=== PATIENT | female | born 1995 | race Caucasian/White ===

== ENCOUNTER → 2019-09-29 | Outpatient (CLI) | payer OTHER ==
--- NOTE | 2019-09-29 13:05 | REP ---
OBSTETRIC SONOGRAPHY: HISTORY: Supervision of for anatomy. FINDINGS: Scanning through the gravid uterus demonstrates a viable single intrauterine gestation in a breech lie. motion is observed and heart rate is recorded at 143 beats per minute. A posterior grade 1 placenta is seen without evidence of previa or abruption. Amniotic fluid is subjectively normal. Closed cervical length is 3.6 cm viewed transabdominally. No extrauterine abnormalities observed. The umbilical cord is seen draping across the shoulders. No anomaly is seen. The following anatomic structures are identified and felt to be sonographically unremarkable: cranium, choroid plexus, cavum, cerebellum and posterior fossa, face and profile, lungs, four-chamber heart with left and right ventricular outflow tract views, diaphragm, left-sided stomach, abdominal wall cord insertion, three-vessel cord, kidneys and bladder, spine, upper and lower extremities. BIOMETRY CHART: BPD 4.9 cm = 20 weeks 6 days Head circumference 18.8 cm = 21 weeks 1 day Abdominal circumference 15.5 cm = 20 weeks 5 days Femur length 3.1 cm = 19 weeks 5 days Humeral length 3.0 cm = 20 weeks 0 days HC/AC ratio normal 1.22 . Cephalic index normal 0.72. Estimated weight 347 grams, 0 pounds 12 ounces, 34th percentile for 20 weeks 5 days. IMPRESSION: Viable single intrauterine gestation at 20 weeks 3 days by today's composite sonographic criteria. MARGARET by today's sonography February 13, 2020. No abnormality noted. Electronically Signed by Imer Jones MD 09/29/2019 01:44 P
== END ==
LOC: M RAD 11:36
PROVIDERS: ATTEND Obstetrics & Gynecology
DX: Z34.02 Encounter for supervision of normal first pregnancy, second trimester (principal); Z3A.20 20 weeks gestation of pregnancy

== ENCOUNTER 2019-10-19 17:13 | Emergency (ER) | payer OTHER ==
[~2019-10-19] VITALS: Ht 154.9 cm; Wt 63.6 kg
[2019-10-19 17:14] VITALS: BP 124/76
[2019-10-19] MEDS ORDERED: [UNRECOGNIZED DRUG - OTHER] (17:23)
[2019-10-19] MEDS ORDERED: FAMO1TAB11 (17:23)
[2019-10-19] MEDS ORDERED: LEVO50TA5 (17:23)
[2019-10-19] MEDS ORDERED: ANUSOL HC CREAM 30GM TOP STA (17:38)
[2019-10-19] MEDS ORDERED: PROC1AER16 PR (17:49)
[2019-10-19] MEDS ORDERED: HYDR-3713 PO (17:49)
[2019-10-19] MEDS ORDERED: ANUS25SU PR (17:49)
[2019-10-19] MEDS ORDERED: MIRA3350 PO (18:27)
== END 2019-10-19 18:12 | disposition home or self-care (01) ==
LOC: M ED 17:13
DX: O22.42 Hemorrhoids in pregnancy, second trimester (principal); O99.282 Endocrine, nutritional and metabolic diseases complicating pregnancy, second trimester; E03.9 Hypothyroidism, unspecified; Z88.0 Allergy status to penicillin; Z3A.23 23 weeks gestation of pregnancy; Z79.899 Other long term (current) drug therapy

== ENCOUNTER 2019-12-28 22:59 | Outpatient (CLI) | payer OTHER ==
[~2019-12-28] VITALS: Ht 157.5 cm; Wt 75.7 kg
[~2019-12-28 22:59] MED LIST: ANUS25SU PR; FAMO1TAB11; HYDR-3713 PO; LEVO50TA5; MIRA3350 PO; PROC1AER16 PR; [UNRECOGNIZED DRUG - OTHER]
[2019-12-28 23:18] VITALS: BP 126/63
[2019-12-28] MEDS ORDERED: MAPA500T2 PO (23:35)
[2019-12-28] MEDS ORDERED: FAMO1TAB25 PO (23:35)
[2019-12-28] MEDS ORDERED: FISH306C PO (23:35)
[2019-12-28] MEDS ORDERED: CALC500C16 PO (23:35)
[2019-12-28] MEDS ORDERED: SM I160T PO (23:35)
[2019-12-28] MEDS ORDERED: TUMS500C PO (23:35)
[2019-12-29] VITALS (8 sets, daily range): BP systolic 103–133; BP diastolic 51–74
[2019-12-29 00:15] LABS: APPEARANCE, URINE CLEAR (CLEAR); BACTERIA, URINE AUTO NEGATIVE (NEGATIVE); BILIRUBIN, URINE AUTO NEGATIVE (NEGATIVE); BLOOD, URINE BLOOD NEGATIVE (NEGATIVE); COLOR, URINE STRAW (YELLOW); GLUCOSE, URINE (UA) AUTO NEGATIVE (NEGATIVE); KETONE, URINE AUTO NEGATIVE (NEGATIVE); LEUKOCYTE ESTERASE, URINE AUTO NEGATIVE (NEGATIVE); NITRITE, URINE AUTO NEGATIVE (NEGATIVE); PROTEIN, URINE AUTO NEGATIVE (NEGATIVE); RBC, URINE AUTO 0 /HPF (0-3); SPECIFIC GRAVITY URINE AUTO 1.005 (1.002-1.035); SQUAMOUS EPITHELIAL CELL UR AU 0 /HPF (0-6); UROBILINOGEN, URINE AUTO 0.2 mg/dL (0.0-2.0); WBC, URINE AUTO 1 /HPF (0-3)
[2019-12-29] MEDS ORDERED: MORPHINE 10 MG/ML 1ML VIAL (J2270) SC ONE (01:30)
[2019-12-29] MEDS ORDERED: LR 1,000 ML IV SCH (02:15)
[2019-12-29] MEDS ORDERED: LR 1,000 ML IV ONE (02:15)
[2019-12-29] MEDS ORDERED: BETAMETHASONE SOLUSPAN 6MG/ML 5ML VIAL (J0702 PER 3MG) IM SCH (02:15)
[2019-12-29] MEDS ORDERED: BETAMETHASONE SOLUSPAN 6MG/ML 5ML VIAL (J0702 PER 3MG) As Ordered ONE (02:20)
--- NOTE | 2019-12-29 07:40 | IPNPDOC ---
Obstetrical Progress Note Date of Service Dec 29, 2019 Subjective 24-year-old 1 presents at 33 weeks 4 days estimated gestational age with complaints of contraction lower back pain. She reports 3-4 days of increasing back pain, pelvic discomfort. She denies any vaginal bleeding, leakage fluid, tissue area, recent intercourse, fever or chills. Her course has been unremarkable. Sterile speculum exam with fibronectin was obtained which returned as positive. Cervical exam cervix is long and closed. She was reexamined 5 hours later and her cervix was unchanged. Objective Vital Signs Date Time Temp Pulse Resp B/P (MAP) Pulse Ox O2 Delivery O2 Flow Rate FiO2 12/29/19 06:30 97.8 75 18 109/57 (74) 12/29/19 02:05 Room Air Assessment Variability: Moderate Accelerations: Positive Heart Rate Tracing: Category I Tocometer Contractions: Yes Sterile Vaginal Examination Dilation: None Station: -3 Cervical Consistency: Medium Cervical Position: Middle Assessment and Plan Age: 24 : 1 Status: Reassuring Additional Comments 24-year-old 1 at 33 weeks 4 days estimated gestational age with contractions, not in active labor. Patient has been provided with betamethasone for lung maturity. She was observed overnight and her cervix remained unchanged. She was given IV fluids and 5 mg of morphine subcutaneous for her lower back pain with improvement of her symptoms. She will return in 24 hours for her second dose. She has been provided with labor precautions and kick count instructions. NHAN ORTEGA MD. Dec 29, 2019 07:40
== END 2019-12-29 08:50 | disposition home or self-care (01) ==
LOC: M LDO 22:59
PROVIDERS: ATTEND Obstetrics & Gynecology
DX: O60.03 Preterm labor without delivery, third trimester (principal); Z3A.33 33 weeks gestation of pregnancy
CPT/HCPCS: 59025; 81001; 82731; 87086; 96360; 96372; G0378; G0463; J0702; J2270

== ENCOUNTER 2019-12-30 07:29 | Outpatient (CLI) | payer OTHER ==
[~2019-12-30] VITALS: Ht 157.5 cm; Wt 75.3 kg
[~2019-12-30 07:29] MED LIST changes: +CALC500C16 PO; +FAMO1TAB25 PO; +FISH306C PO; +MAPA500T2 PO; +SM I160T PO; +TUMS500C PO
[2019-12-30] MEDS ORDERED: BETAMETHASONE SOLUSPAN 6MG/ML 5ML VIAL (J0702 PER 3MG) IM ONE (08:00)
[2019-12-30 08:02] VITALS: BP 134/60
--- NOTE | 2019-12-30 16:25 | IPNPDOC ---
Text Note Date of Service The patient was seen on 12/30/19. NOTE LND Triage Note S: Estefany is a 24yo at 33+5wks who presents to LND triage for 2nd dose of betamethasone. She reports that she had some contractions yesterday that stopped spontaneously, but has had a few since she woke up today. She reports +FM, denies LOF/VB. She has no other concerns at this time. O: VSS, afebrile, normotensive FHR 130s, moderate variability, + accels, no decels noted CTX: few during NST VE: 1/L/H (unchanged from exam at discharge yesterday) A: 24yo at 33+5wks, reassuring status, Category I FHT/Reactive. Not in labor. 2nd dose of betamethasone administered. P: Discharged home with strict PTL precautions. f/u PRN here in LND or for clinic appointment Can call customer consulting manager or OB emergency pager with questions/concerns VS,Rm, I+O VS, Rm, I+O Vital Signs Date Time Temp Pulse Resp B/P (MAP) Pulse Ox O2 Delivery O2 Flow Rate FiO2 12/30/19 08:02 99.2 89 18 134/60 (84) HODAN VILLALBA CNM Dec 30, 2019 16:25
== END 2019-12-30 09:15 | disposition home or self-care (01) ==
LOC: M LDO 07:29
PROVIDERS: ATTEND Registered Nurse Maternal Newborn
DX: O26.893 Other specified pregnancy related conditions, third trimester (principal); Z3A.33 33 weeks gestation of pregnancy

== ENCOUNTER 2019-12-30 18:33 | Inpatient (IN) | payer OTHER ==
[~2019-12-30] VITALS: Ht 157.5 cm; Wt 75.0 kg
[2019-12-30 18:53] VITALS: BP 122/56
[2019-12-30 19:28] VITALS: BP 116/55
[2019-12-30] MEDS ORDERED: NIFEdipine 10 MG CAP PO ONE ×2 (19:30→22:00)
--- NOTE | 2019-12-30 19:35 | IPNPDOC ---
Text Note Date of Service The patient was seen on 12/30/19. NOTE pateint is a 24yo at 33+5wks who presents to LND triage for having regular painful contractions x 2 hrs. she was seen yesterday for contractions, serial cervical checks unchanged. positive FFN. she received her second dose of betamethasone this AM. Was also checked to be unchanged. She denies LOF/VB. +FM O: VSS, afebrile, normotensive FHR 130s, moderate variability, + accels, no decels noted TOCO: ctx q 3-4mins CE: closed/l/high, soft, mid a/p patient 24 you @ 33+5wks with contractions. unchanged serial cervical exams. discussed with patient trial of procardia for contractions. start with procardia 20 mg po. oral hydration. DO Marlee VS,Fishbone, I+O VS, Fishbone, I+O Vital Signs Date Time Temp Pulse Resp B/P (MAP) Pulse Ox O2 Delivery O2 Flow Rate FiO2 12/30/19 18:53 97.8 73 18 122/56 (78) TAMMIE GOMEZ DO Dec 30, 2019 19:35
[2019-12-30 20:57] VITALS: BP 115/56
[2019-12-30 21:48] VITALS: BP 118/61
--- NOTE | 2019-12-30 21:59 | IPNPDOC ---
Text Note Date of Service The patient was seen on 12/30/19. NOTE patient received procardia po 20mg. reports feeling decreased intensity. still regular ctx. vitals: normal NAD taus: breech fht: 135/mod geetha/pos accel/no decel toco: ctx q 3mins ce: 07/17/-3 a/p patient with cervical change. breech presentation. Will continue monitoring. redose nifedipine 20mg x 1. start IV, standard labs. reassess 2 hrs after nefidpine dosing. Discuss with patient if her cervix continues to make significant change, then I will recommend a primary delivery due to breech presentation. DO Marlee VS,Rm, I+O VS, Fishbone, I+O Vital Signs Date Time Temp Pulse Resp B/P (MAP) Pulse Ox O2 Delivery O2 Flow Rate FiO2 12/30/19 19:37 116/55 12/30/19 18:53 97.8 73 18 TAMMEI GOMEZ DO Dec 30, 2019 21:59
[2019-12-30 22:06] VITALS: BP 108/54
[2019-12-30] MEDS: LR 1,000 ML IV SCH (22:06)
[2019-12-30 22:44] LABS: HEMATOCRIT 38.5 % (36.0-47.0); HEMOGLOBIN 12.9 g/dl (12.0-15.5); MEAN CORPUSCULAR HEMOGLOBIN 32.7 pg (27.0-33.0); MEAN CORPUSCULAR HGB CONC 33.5 g/dl (32.0-36.5); MEAN CORPUSCULAR VOLUME 97.5 fl (80.0-96.0); PLATELET COUNT, AUTOMATED 159 10^3/uL (150-450); RED BLOOD COUNT 3.95 10^6/uL (4.00-5.40); WHITE BLOOD COUNT 11.8 10^3/uL (4.0-10.0)
--- NOTE | 2019-12-30 23:16 | HPEPDOC ---
Obstetrical History & Physical General Date of Admission Dec 30, 2019 at 22:56 History of Present Illness patient is a 24 yo G1 @ 33+5wks with contraction, made cervical change from closed to 1cm after 2hrs observation. procardia 20mg po decreased intensity of contractions. she had second dose of steroid around 0830 this AM. Chief Complaint: Contractions, pre-term Information Provided By: Patient Age: 24 : 1 Term: 0 Pre-term: 0 Abortions: 0 Livin Care Care: Good Care Dating Final EDC: Feb 12, 2020 Final EDC for Daily Update: Feb 12, 2020 Final EDC by: LMP, 1st trimester (US) Past Medical History Past Obstetrical History : Past Obstetrical History: Primgravida Past Medical History Medical History hypothyroidism, scoliosis Surgical History: Denies/None Family History Significant Family History: No pertinent family hx Social History Marital Status: Family situation: Spouse/partner home * Smoker: non-smoker Alcohol: Denies Drugs: denies Imunizations Tdap status: current Influenza Status: current Allergies Coded Allergies: amoxicillin (Verified Allergy, Intermediate, hives, 12/30/19) Medications Scheduled Calcium Carbonate (Calcium) 500 Mg Tab.chew, 1 TAB PO BID [place]cher-3/Dha/Epa/Fish Oil (Fish Oil 500 mg Softgel) 1 Each Capsule, 1 CAP PO DAILY Miscellaneous Medications Acetaminophen (Mapap) 500 Mg Tablet, 1,000 MG PO Famotidine (Famotidine) 20 Mg Tablet Ferrous Sulfate, Dried (Iron) 160 Mg Tablet.er, 160 MG PO Levothyroxine Sodium (Levothyroxine Sodium) 50 Mcg Tablet [prentatl vit] Physical Examination Physical Examination GENERAL: Alert and oriented times three. ABDOMEN: Gravid and non-tender to touch. FETUS: breech, by TAUS HEART RATE: Regular rate and rhythm. LUNGS: Clear to auscultation (CTA). EXTREMITIES: No edema. No clonus. Deep tendon reflexes (DTRs) + . EFW: 2100gm Vital Signs/I&O Vital Signs Date Time Temp Pulse Resp B/P (MAP) Pulse Ox O2 Delivery O2 Flow Rate FiO2 12/30/19 22:06 108/54 12/30/19 18:53 97.8 73 18 Laboratory Data 24H LABS Laboratory Tests 2 12/30/19 21:35: Urine Color STRAW, Urine Appearance CLEAR, Urine pH 7.0, Urine Specific [place] 1.003, Urine Protein NEGATIVE, Urine Glucose (UA) NEGATIVE, Urine Ketones 2+H, Urine Blood NEGATIVE, Urine Nitrite NEGATIVE, Urine Bilirubin NEGATIVE, Urine Urobilinogen 0.2, Urine Leukocyte Esterase NEGATIVE, Urine WBC (Auto) 0, Urine RBC (Auto) 0, Urine Hyaline Casts (Auto) 0, Urine Bacteria (Auto) NEGATIVE, U rine Squamous Epithelial Cells 0, Urine Sperm (Auto) 12/30/19 22:26: Nucleated Red Blood Cells % (auto) 0.3H CBC/BMP Laboratory Tests 12/30/19 22:26 Microbiology Microbiology 12/30/19 Group B Streptococcus Screen (JUAN MANUEL), Received Pending Pertinent Laboratoy Data Blood Type: A+ RBC Antibody Screen: Negative HIV: Negative Hepatitis B: Negative Rapid Plasma Reagin: Nonreactive Rubella: Immune Varicella: Immune Chlamydia/Gonorrhea: Negative Group B Streptococcus: Unknown Glucose Tolerance Test: 122 Anatomy Ultrasound Placenta Location: Posterior Normal Anatomy: Yes Placenta Previa: No Vaginal Examination Dilation: 1cm Effacement: 30% Station: -3 Cervical Consistency: Medium Cervical Position: Middle Presentation: Breech presentation Assessment Heart Rate (FHR): 130 Variability: Moderate Accelerations: Positive Decelerations: None Tocometer Contractions: Yes Frequency: regular, every 1-3 min. Assessment/Plan Assessment patient is a 24 yo G1 @ 33+5wks with concern for labor in setting of breech presentation. She will be steroid complete tomorrow at 0830. Admit for monitoring and tocolysis. Discussed with patient if she continues to make cervical changes, then delivery mode will be primary section to avoid breech delivery and associated complications. Discussed risks of section to include infection, bleeding requiring blood transfusion, injuring to surrounding organs, hysterectomy, as well as post op pain. Plan Admit and orient. Rn Telemetry and consent. Diet: NPO Group B Streptococcus (GBS) unknown Labs and intravenous (IV) per unit protocol. consent for section and blood transfusion. continue with nifedipine for tocolysis attempt, may consider terb pcn allergic. TAMMIE GOMEZ DO Dec 30, 2019 23:16
[2019-12-31] VITALS (7 sets, daily range): BP systolic 104–119; BP diastolic 51–59
[2019-12-31] MEDS: LR 1,000 ML IV SCH ×3 (00:10→13:43)
[2019-12-31] MEDS ORDERED: TERBUTALINE SULFATE 1 MG/ML VIAL (J3105) SC ONE ×2 (00:15→03:30)
[2019-12-31] MEDS ORDERED: LEVOTHYROXINE 50MCG TABLET (0.05MG) PO SCH (06:00)
--- NOTE | 2019-12-31 07:14 | IPNPDOC ---
Text Note Date of Service The patient was seen on 12/31/19. NOTE patient received terb 0.25mg x 2 after procardia 20mg x 2. Currently reports rare contractions. she is without concerns. steroid complete at 0830 today. vitals: normal NAD fht: 145/mod geetha/pos accel/no decel toco: uterine irritability with occasional contractions. ce: 07/17/-3 a/p patient in labor, contractions stopped with terb. patient is steroid complete this AM. Discussed with patient since she is steroid complete, will not continue to attempt to stop her labor if her contractions cook pickled meat again due to risks of terbutaline. Discussed with patient option of going home vs. remaining in house for observation at least for the day. patient desires to s mercedes in house since this is her third visit. patient is consented for section if she continues to make cervical changes. Will transfer to ante . BID NST. assess for discharge tomorrow. DO Marlee VS,Rm, I+O VS, Patricee, I+O Laboratory Tests 12/30/19 22:26 Vital Signs Date Time Temp Pulse Resp B/P (MAP) Pulse Ox O2 Delivery O2 Flow Rate FiO2 12/31/19 03:53 98.6 74 18 104/54 (71) TAMMIE GOMEZ DO Dec 31, 2019 07:14
[2019-12-31] MEDS: PRENATAL VITAMINS CHEWABLE TABLET PO SCH (08:10)
[2019-12-31] MEDS: LEVOTHYROXINE 50MCG TABLET (0.05MG) PO SCH (08:10)
--- NOTE | 2019-12-31 14:24 | IPNPDOC ---
Text Note Date of Service The patient was seen on 12/31/19. NOTE S: Feeling "tightening" 8/hr. Began IVF bolus. O: VS WNL ABD Gravid, NT SVE: 07/17/3 (unchanged) FHT: Category 1, 130s, reactive, no decels, 1 ctx A/P: Fetus reassuring. Will go on patient symptoms. Pt to inform if she has similar (to prior) or painful ctx. If remains stable then regular diet at dinner. VS,Fishbone, I+O VS, Fishbone, I+O Laboratory Tests 12/30/19 22:26 Vital Signs Date Time Temp Pulse Resp B/P (MAP) Pulse Ox O2 Delivery O2 Flow Rate FiO2 12/31/19 10:10 98.7 96 16 119/59 (79) 98 Room Air Rizwana Mckeon MD Dec 31, 2019 14:24
[2020-01-01] MEDS: LR 1,000 ML IV SCH ×2 (05:45→12:06)
[2020-01-01] MEDS: LEVOTHYROXINE 50MCG TABLET (0.05MG) PO SCH (05:45)
[2020-01-01 06:00] VITALS: BP 114/65
--- NOTE | 2020-01-01 08:30 | IPNPDOC ---
Text Note Date of Service The patient was seen on 01/01/20. NOTE S: No LOF. No VB. +FM. No contractions but had "tightening" (BH) int ermittently yesterday. O: AF, VS WNL ABD gravid, NT SVE Deferred (12/31/201907/17/-3) LE NT, SCDS in place FHT: Category 1, 130s, reactive, no decels, no ctx A/P: 24yo at wks HD 3 . She is s/p Dexa x 2, US 01/01/2020 breech, normal FLORIAN , EFW consistent. S/p nifedipine and terb. US if PTL/contractions increase. Continue to observe for PTL. VS,Patricee, I+O VS, Rm, I+O Laboratory Tests 12/30/19 22:26 Vital Signs Date Time Temp Pulse Resp B/P (MAP) Pulse Ox O2 Delivery O2 Flow Rate FiO2 12/31/19 14:49 98.2 85 20 118/56 (76) 97 Room Air Rizwana Mckeon MD Dec 31, 2019 15:41
[2020-01-01] MEDS: PRENATAL VITAMINS CHEWABLE TABLET PO SCH (09:07)
[2020-01-01] MEDS ORDERED: ACETAMINOPHEN 500 MG TAB PO ONE (17:00)
--- NOTE | 2020-01-02 08:34 | IPN ---
DATE: 01/01/2020 This lady is a 24-year-old, 1, para 0, who was seen because of contractions. She was admitted and given the first dose of steroids. Sent home. Came back for a second dose of steroids. Had intermittent contractions and however, apparently she made some cervical change to 1 cm and it was elected to keep her and attempt to stop her contractions until she was steroid complete. She was given terbutaline and she was given nifedipine. She was down on the rooney and had some contractions, which apparently start at the top of her abdomen and went around side and down her legs. She has no discharge, no vaginal bleeding, and good movement. She did have a category 1 strip and we could see the occasional contraction on the monitor. She is presently now steroid complete. We are pending group B streptococcus (GBS) cultures. She is being monitored, hydrated and the plan of care was if she is still maintained as a breech and was in active labor that she will have a primary section. At the present time, she is not in active labor. We are going to reassess for amniotic fluid, weight, position, and cervical length. At the present time, her blood pressure is 114/65, respirations are 18, pulse 83, temperature is 98.2. Our plan of management is to do an ultrasound for evaluation, monitor for contractions and if she truly gets into active labor will have a primary section for breech presentation of labor. The patient and expressed understanding of the plan. She will have prophylactic antibiotics because GBS status unknown. It should be out in less than 24 hours. Will reevaluate her in several hours' time.
--- NOTE | 2020-01-02 10:44 | REP ---
FOLLOWUP OB ULTRASOUND: 01/01/2020. CLINICAL HISTORY: Supervision of , evaluate position, weight, FLORIAN, and cervical length. COMPARISON STUDY: 09/29/2019 FINDINGS: Based on her initial ultrasound and LMP, she has an EDC of 02/11/2020, 34 weeks 1 day. There is a single intrauterine gestation in breech position. Cervix is 3.7 cm long. Amniotic fluid volume is subjectively upper normal at 22.9 with a normal range 8.1-24.8. The largest fluid pocket is 8.7 cm. There is a posterior fundal grade 1 placenta without previa or abruption. BIOMETRY:BPD 8.5 cm = 34 weeks 2 daysHC 31.4 cm = 35 weeks 2 daysAC 32.1 cm = 36 weeksFL 6.7 cm = 34 weeks 4 daysHL 5.8 cm = 33 weeks 6 days This gives average ultrasound age 34 weeks 4 days with EDC 02/08/2020. Estimated weight 2663 grams or 5 pounds 13 ounces is 71st percentile for dating based on initial ultrasound. heart rate 139 and regular. Mid cord umbilical artery Doppler has an S/D ratio of 2.97, upper range of normal is 3.0. Resistive index of 0.66 and normal forward diastolic flow. IMPRESSION: 1. Single intrauterine gestation in breech position with closed 3.7 cm long cervix, posterior fundal grade 1 placenta without previa or abruption, and subjectively upper normal range amniotic fluid. FLORIAN 22.9, normal range 8.1-24.8. 2. Mid cord umbilical artery Doppler 2.97 with normal forward diastolic flow. 3. Average ultrasound age by today's exam 34 weeks 4 days, by initial exam 34 weeks 1 day with EDC 02/11/2020. 4. Estimated weight 2663 grams or 5 pounds 13 ounces at 71st percentile. 5. heart rate 139. Electronically Signed by Chepe Pacheco MD 01/02/2020 06:37 P
== END 2020-01-01 18:58 | disposition home or self-care (01) | DRG 998 ==
LOC: M LDO 18:33 → M LDI 22:56 → M OBS 12-31 10:09 → M LDI 01-01 13:30
PROVIDERS: ADMIT Obstetrics & Gynecology; ATTEND Obstetrics & Gynecology
DX: O60.14X0 Preterm labor third trimester with preterm delivery third trimester, not applicable or unspecified (principal); Z3A.33 33 weeks gestation of pregnancy; Z79.899 Other long term (current) drug therapy; O32.1XX0 Maternal care for breech presentation, not applicable or unspecified

== ENCOUNTER 2020-02-02 12:42 | Inpatient (IN) | payer OTHER ==
[2020-02-02] MEDS ORDERED: BICITRA 30ML SOLN UDC ONE (14:34)
[2020-02-02] MEDS ORDERED: dexameTHASONE 4 MG/ML 1ML VIAL (J1100 PER 1MG) As Ordered ONE (14:43)
[2020-02-02] MEDS ORDERED: ONDANSETRON 4MG/2ML VIAL As Ordered ONE (14:43)
[2020-02-02] MEDS ORDERED: OXYTOCIN 30 UNITS IN 0.9% NaCl 500ML IV BAG (J2590) As Ordered ONE (14:43)
[2020-02-02] MEDS ORDERED: MORPHINE PRES-FREE INJ 10 MG/10 ML VIAL (J2274) As Ordered ONE (14:43)
[2020-02-02] MEDS ORDERED: KETOROLAC 60MG 2ML VIAL As Ordered ONE (14:43)
[2020-02-02] MEDS ORDERED: OXYTOCIN INJ 10 UNITS/ML VIAL (J2590) As Ordered ONE (14:44)
[2020-02-02] MEDS ORDERED: ePHEDrine SULFATE 25 MG/5 ML(5MG/ML) SYRINGE As Ordered ONE (14:44)
[2020-02-02] MEDS ORDERED: PHENYLephrine HCL 500 MCG/5 ML (100MCG/ML) SYRINGE (J2370) As Ordered ONE (14:44)
[2020-02-02] MEDS ORDERED: CLINDAMYCIN 900 MG/50 ML PREMIX BAG ONE (15:37)
[2020-02-02] MEDS ORDERED: MIDAZOLAM INJ 2MG/2ML VIAL (J2250 PER 1MG) As Ordered ONE (15:45)
[2020-02-02] MEDS ORDERED: propofoL 200 MG/20 ML VIAL As Ordered ONE (15:52)
[2020-02-02] MEDS ORDERED: fentaNYL 100 MCG/2 ML INJECTION (J3010) As Ordered ONE (15:53)
[2020-02-02] MEDS ORDERED: OXYTOCIN 30 UNITS IN 0.9% NaCl 500ML IV BAG (J2590) ONE (17:13)
[2020-02-02] MEDS ORDERED: PERCOCET 5MG/325MG TAB ONE (19:46)
[2020-02-02] MEDS ORDERED: KETOROLAC 30 MG/ML 1ML VIAL ONE (23:39)
[2020-02-03] MEDS ORDERED: KETOROLAC 30 MG/ML 1ML VIAL ONE ×2 (03:23→11:04)
[2020-02-03] MEDS ORDERED: PERCOCET 5MG/325MG TAB ONE ×5 (03:26→22:03)
[2020-02-03] MEDS ORDERED: PERCOCET 5MG/325MG TAB As Ordered ONE ×4 (08:00→22:03)
[2020-02-03] MEDS ORDERED: DOCUSATE SODIUM 100 MG CAP As Ordered ONE ×2 (08:00→19:34)
[2020-02-03] MEDS ORDERED: DOCUSATE SODIUM 100 MG CAP ONE ×2 (08:00→19:34)
[2020-02-03] MEDS ORDERED: KETOROLAC 30 MG/ML 1ML VIAL As Ordered ONE (11:04)
[2020-02-03] MEDS ORDERED: IBUPROFEN 800 MG TAB ONE (18:07)
[2020-02-03] MEDS ORDERED: IBUPROFEN 800 MG TAB As Ordered ONE (18:08)
[2020-02-04] MEDS ORDERED: IBUPROFEN 800 MG TAB As Ordered ONE ×3 (02:08→20:15)
[2020-02-04] MEDS ORDERED: IBUPROFEN 800 MG TAB ONE ×3 (02:08→20:15)
[2020-02-04] MEDS ORDERED: PERCOCET 5MG/325MG TAB ONE ×6 (02:08→23:16)
[2020-02-04] MEDS ORDERED: PERCOCET 5MG/325MG TAB As Ordered ONE ×6 (02:10→23:16)
[2020-02-04] MEDS ORDERED: SIMETHICONE 80 MG CHEW TAB ONE ×2 (04:07→20:15)
[2020-02-04] MEDS ORDERED: SIMETHICONE 80 MG CHEW TAB As Ordered ONE ×2 (04:07→20:15)
[2020-02-04] MEDS ORDERED: MIRALAX *UNIT DOSE* 17GM PACKET As Ordered ONE ×2 (07:53→20:15)
[2020-02-04] MEDS ORDERED: DOCUSATE SODIUM 100 MG CAP As Ordered ONE ×2 (07:53→20:24)
[2020-02-04] MEDS ORDERED: MIRALAX *UNIT DOSE* 17GM PACKET ONE ×2 (07:53→20:15)
[2020-02-04] MEDS ORDERED: DOCUSATE SODIUM 100 MG CAP ONE ×2 (07:53→20:24)
[2020-02-05] MEDS ORDERED: IBUPROFEN 800 MG TAB As Ordered ONE ×2 (04:01→11:46)
[2020-02-05] MEDS ORDERED: IBUPROFEN 800 MG TAB ONE ×2 (04:01→11:46)
[2020-02-05] MEDS ORDERED: DOCUSATE SODIUM 100 MG CAP As Ordered ONE (08:53)
[2020-02-05] MEDS ORDERED: SIMETHICONE 80 MG CHEW TAB ONE (08:53)
[2020-02-05] MEDS ORDERED: PERCOCET 5MG/325MG TAB ONE ×2 (08:53→13:50)
[2020-02-05] MEDS ORDERED: DOCUSATE SODIUM 100 MG CAP ONE (08:53)
[2020-02-05] MEDS ORDERED: MIRALAX *UNIT DOSE* 17GM PACKET ONE (08:53)
[2020-02-05] MEDS ORDERED: PERCOCET 5MG/325MG TAB As Ordered ONE ×2 (08:53→13:50)
[2020-02-05] MEDS ORDERED: SIMETHICONE 80 MG CHEW TAB As Ordered ONE (08:54)
[2020-02-05] MEDS ORDERED: MIRALAX *UNIT DOSE* 17GM PACKET As Ordered ONE (08:54)
[2020-03-26 01:01] LABS: HEMATOCRIT 38.5 % (36.0-47.0); HEMOGLOBIN 13.3 g/dl (12.0-15.5); MEAN CORPUSCULAR HEMOGLOBIN 32.8 pg (27.0-33.0); MEAN CORPUSCULAR HGB CONC 34.5 g/dl (32.0-36.5); MEAN CORPUSCULAR VOLUME 94.8 fl (80.0-96.0); PLATELET COUNT, AUTOMATED 183 10^3/uL (150-450); RED BLOOD COUNT 4.06 10^6/uL (4.00-5.40); WHITE BLOOD COUNT 7.9 10^3/uL (4.0-10.0)
[2020-03-26 16:43] LABS: HEMOGLOBIN 10.2 g/dl (12.0-15.5); MEAN CORPUSCULAR HEMOGLOBIN 33.4 pg (27.0-33.0); MEAN CORPUSCULAR HGB CONC 35.2 g/dl (32.0-36.5); MEAN CORPUSCULAR VOLUME 95.1 fl (80.0-96.0); PLATELET COUNT, AUTOMATED 147 10^3/uL (150-450); RED BLOOD COUNT 3.05 10^6/uL (4.00-5.40); WHITE BLOOD COUNT 9.5 10^3/uL (4.0-10.0)
--- NOTE | 2020-03-27 09:33 | HPE ---
DATE OF ADMISSION: 02/02/2020 REASON FOR ADMISSION: Rupture of membranes. HISTORY OF PRESENT ILLNESS: Mrs. Middleton is a 25-year-old 1 who presents at 38 weeks, 4 days estimated gestational age with complaints of a gush of clear fluid. Following initial gush, she has continued to leak clear fluid. She has had some irregular contractions. Denies any vaginal bleeding. Reports active movement. COURSE: Remarkable for recent ultrasound demonstrating a transverse lie position. Patient was counseled on management options, including external cephalic version versus primary section, and she opts for primary section, which was scheduled for this coming Friday. She seeks care at [facility]. MEDICAL HISTORY: Hypothyroidism. PAST SURGICAL HISTORY: None. PAST OBSTETRICAL HISTORY: She is 1. ALLERGIES: AMOXICILLIN, which causes rash. MEDICATIONS: - levothyroxine 50 mcg - vitamins - vitamin C - iron PHYSICAL EXAMINATION: Vital signs are stable. She is afebrile. She has category 1 heart rate tracing with regular contractions on tocometer. GENERAL APPEARANCE: Well appearing in no acute distress. LUNGS: Clear to auscultation bilaterally. CARDIOVASCULAR: Heart regular rate and rhythm. ABDOMEN: Gravid, nontender. CERVICAL EXAM: She is grossly ruptured. Nitrazine positive. LABORATORY DATA: Blood type is A positive. Antibody screen is negative. HIV is negative. Hepatitis surface antigen is negative. RPR is nonreactive. Rubella is immune. Chlamydia and gonorrhea screens were negative. She had a normal 1-hour Glucola. She is GBS negative. ASSESSMENT: 1. Ms. Middleton is a 24-year-old 1, para 0, at 38 weeks, 4 days estimated gestational age, estimated date of confinement (EDC) February 11 with premature rupture of membranes. 2. Reassuring status. PLAN: 1. Admit to labor and delivery. Complete blood count (CBC), rapid plasma reagin (RPR), type and screen. 2. Patient has been thoroughly counseled in regard to her diagnosis of malpresentation, currently ruptured. This was confirmed with ultrasound. Showed a transverse lie, head to the left side of the patient's abdomen. Plan is to proceed with section. [facility]
--- NOTE | 2020-03-30 10:45 | RO ---
DATE OF OPERATION: 02/02/2020 PREOPERATIVE DIAGNOSES: * Premature rupture of membranes. * Malpresentation. POSTOPERATIVE DIAGNOSIS: * Premature rupture of membranes. * Malpresentation. PROCEDURE PERFORMED: Primary low-transverse section. SURGEON: Barbara Cole MD BI DEVELOPER: Akila Cardoso CNM ANESTHESIA: Spinal. ESTIMATED BLOOD LOSS: 600 mL. INTRAVENOUS FLUIDS: 1500 mL of lactated ringer solution. URINE OUTPUT: 400 mL. PREOPERATIVE ANTIBIOTICS: 2 grams of Azactam and 900 mg of clindamycin. OPERATIVE FINDINGS: Live born female in transverse lie. 7 and 8. Weight 3710 or 8 pounds 3 ounces. SPECIMEN: None. DESCRIPTION OF PROCEDURE: After informed consent was obtained and written consent was reviewed, the patient was brought to the operating room where spinal anesthesia was placed. She was then placed in the supine position with a left lateral tilt. A Jackson catheter was placed and set to gravity. The patient was then prepped and draped in a normal sterile fashion. A time-out in the operating room was then performed identifying the patient, procedure being performed, as well as drug allergies. Anesthesia was tested and deemed to be adequate. A Pfannenstiel skin incision was then made and carried down to the underlying rectus fascia. The fascia was scored and this incision was extended bilaterally. The fascia was then dissected off the underlying rectus muscles both superiorly and inferiorly. The rectus muscles were in the midline. The peritoneum was then entered sharply. A Mobius retractor was then placed. The vesicouterine pouch was then identified, tented, and sliced to create a bladder flap. A curvilinear incision was then made and this incision was extended. The head was then positioned in the cephalad presentation and was delivered atraumatically along with the shoulders and corpus. The cord was clamped x2 and was cut. The was taken over to the warmer with a good cry. The placenta was then drained and delivered grossly intact. The uterus was then cleared of all clots and debris. The uterine incision was then closed in two layers using 0-Vicryl first layer in a running locking fashion followed by a second layer in a running non-locking fashion for imbrication. The incision was inspected and noted to be hemostatic. The abdomen was then irrigated and suctioned. Surgical sites were re-inspected and noted to be hemostatic. The Mobius retractor was then removed. The anterior peritoneum was then reapproximated with 3-0 Vicryl. The rectus muscles were reapproximated with 3-0 Vicryl. The fascia was then closed with 0-Vicryl in a running non-locking fashion. The subcutaneous tissue was then irrigated and suctioned. Subcutaneous tissue was then reapproximated with 3-0 Vicryl. Several subdermal sutures were placed with 3-0 Vicryl and the skin was closed with 4-0 Monocryl in the subcuticular fashion. The incision was then clean and dry and was dressed. The patient was then taken to recovery in stable condition. Counts were correct. Akila Cardoso, my research program assistant, played an essential role in the operation. She assisted with tissue identification, retraction, as well as delivery of the and wound closure. ANGEL
--- NOTE | 2020-03-31 16:46 | DS ---
DATE OF ADMISSION: 02/02/2020 DATE OF DISCHARGE: 02/05/2020 This lady is a 3, now para 1, admitted with premature rupture of membranes (PPROM). Had a primary section for malpresentation of breech, live- female infant, 8 pounds 3 ounces, 3710 grams, scores of 7 and 8 at one and five minutes, respectively. Postoperative course was remarkable by the fact she was difficult for pain management; however, now that she is under pain control she is able to be discharged. On examination today, we discussed phlebitis, cystitis, mastitis, metritis, cellulitis, diet, exercise, pain management, and perineal, breast, and wound care. Examination unremarkable. Normocephalic, atraumatic. Neck: Full range of motion. Pupils equal and reactive to light. Distal pulses are symmetric. No evidence of deep venous thrombosis (DVT), pulmonary embolus (PE), or superficial phlebitis. Chest is clear bilateral to bases. No wheezes or rhonchi. No costovertebral angle (CVA) tenderness. Abdomen is soft. Four-quadrant bowel sounds are noted. Incision has an Optifoam on it, and it appears to be clean and dry. She has no urgency or frequency. No nausea, vomiting, diarrhea, or constipation. She is voiding and passing gas. Her admitting hemoglobin 13.3, hematocrit 38.5, platelets 183. Discharge hemoglobin 10.2, hematocrit 29.0, and platelets 147. Her vital signs were stable. She was afebrile. Patient was discharged to followup in 2 weeks' time for incision check at [facility], 6 weeks for a checkup. She was dispensed by prescription some Percocet and ibuprofen, and she is to poultry picker the rest of her medications on Friday at [facility]. All questions were answered. A 20-minute discussion. Patient was discharged improved. ANGEL
[2020-04-26 11:44] LABS: HEPATITIS B SURFACE ANTIGEN NEGATIVE (NEGATIVE)
== END 2020-02-05 14:05 | disposition home or self-care (01) | DRG 773 ==
LOC: M LDI 12:42
PROVIDERS: ADMIT Obstetrics & Gynecology; ATTEND Obstetrics & Gynecology
PROC: 10D00Z1 Extraction of Products of Conception, Low, Open Approach (ICD-10-PCS; principal; 2020-02-02)
DX: O42.02 Full-term premature rupture of membranes, onset of labor within 24 hours of rupture (principal); Z37.0 Single live birth; Z3A.38 38 weeks gestation of pregnancy; O32.2XX0 Maternal care for transverse and oblique lie, not applicable or unspecified; E03.9 Hypothyroidism, unspecified; O99.284 Endocrine, nutritional and metabolic diseases complicating childbirth; Z88.0 Allergy status to penicillin